=== PATIENT | male | born 1990 | race Caucasian/White ===

== ENCOUNTER 2021-05-23 07:14 | Outpatient (CLI) | payer BC ==
[2021-05-23] MEDS ORDERED: Iopamidol 370 76% 100 ML VIAL ONE (10:18)
== END 2021-05-23 07:15 | disposition home or self-care (01) ==
LOC: CT 07:14
PROVIDERS: ATTEND Specialist
DX: R10.33 Periumbilical pain (principal); K42.9 Umbilical hernia without obstruction or gangrene
CPT/HCPCS: 74177; Q9967